=== PATIENT | female | born 1945 | race Caucasian/White ===

== ENCOUNTER 2025-02-02 16:37 | Inpatient (IN) | payer MEDICARE, OTHER ==
[~2025-02-02] VITALS: Ht 165.1 cm; Wt 93.5 kg
[2025-02-02] MEDS ORDERED: CYAN500T56 PO (17:55)
[2025-02-02] MEDS ORDERED: VITA-328 PO (17:55)
[2025-02-02] MEDS ORDERED: GABA-529 PO (17:55)
[2025-02-02] MEDS ORDERED: VIT1CAPS47 PO (17:55)
[2025-02-02] MEDS ORDERED: DONE-51 PO (17:55)
[2025-02-02] MEDS ORDERED: MULT-1192 PO (17:55)
[2025-02-02] MEDS ORDERED: AMLO10TA55 PO (17:55)
[2025-02-02] MEDS ORDERED: ATOR10TA69 PO (17:55)
[2025-02-02] MEDS ORDERED: FAMO40TA7 PO (17:55)
[2025-02-02] MEDS ORDERED: ESCI5TAB16 PO (17:55)
[2025-02-02] MEDS ORDERED: TRAM50TA5 PO (17:55)
[2025-02-02 18:08] LABS: BASOPHILS % (AUTO) 0.5 % (0.0-2.0); EOSINOPHILS % (AUTO) 1.7 % (1.0-6.0); HEMATOCRIT 41.3 % (36-46); HEMOGLOBIN 14.1 g/dL (12.0-16.0); LYMPHOCYTES # (AUTO) 1.8 K/uL (1.0-4.8); LYMPHOCYTES % (AUTO) 24.5 % (22.0-44.0); MEAN CORPUSCULAR VOLUME 88 fL (80-100); MONOCYTES # (AUTO) 0.5 K/uL (0.1-1.0); MONOCYTES % (AUTO) 6.7 % (2.0-9.0); NEUTROPHILS % (AUTO) 66.6 % (40.0-70.0); PLATELET COUNT (AUTO) 244 K/uL (150-450); RED BLOOD CELL COUNT(AUTO) 4.69 MIL/uL (4.00-5.20); RED CELL DISTRIBUTION WIDTH 14.5 % (11.5-14.5); WHITE BLOOD COUNT (AUTO) 7.5 K/uL (4.5-11.0)
[2025-02-02 18:11] LABS: APPEARANCE,URINE HAZY (CLEAR); BILIRUBIN,URINE NEGATIVE (NEGATIVE); COLOR,URINE YELLOW (YELLOW); GLUCOSE, URINE (UA) NEGATIVE (NEGATIVE); KETONES,URINE NEGATIVE (NEGATIVE); LEUKOCYTE ESTERASE ,URINE LARGE (NEGATIVE); NITRATE,URINE NEGATIVE (NEGATIVE); OCCULT BLOOD,URINE NEGATIVE (NEGATIVE); PROTEIN,URINE TRACE mg/dL (NEGATIVE); SPECIFIC GRAVITIY, URINE 1.018 (1.003-1.030); UROBILINOGEN,URINE <=1.0 mg/dL (<=1.0)
[2025-02-02 18:15] LABS: ANION GAP 6 mmol/L (8-16); CALCIUM, TOTAL 9.7 mg/dL (8.8-10.5); CARBON DIOXIDE 28 mmol/L (22-29); CHLORIDE 104 mmol/L (98-107); CREATININE 0.93 mg/dL (0.60-1.30); GLOMERULAR FILTR. RATE CALC 58 mL/min (>60); GLUCOSE,RANDOM 93 mg/dL (70-110); POTASSIUM 3.8 mmol/L (3.5-5.1); SODIUM SERUM 138 mmol/L (136-145); UREA NITROGEN, BLOOD 23 mg/dL (7-18)
[2025-02-02 18:16] LABS: LIPASE 32 U/L (16-77)
[2025-02-02 18:21] LABS: B-TYPE NATRIURETIC PEPTIDE 59 pg/mL (0-100)
[2025-02-02 18:23] LABS: RBC,URINE 0-2 /HPF (0-2)
[2025-02-02 18:24] LABS: BACTERIA,URINE Moderate /HPF (None Seen); SQUAMOUS EPITHELIAL CELL,UR Few /LPF (None Seen); WBC,URINE >100 /HPF (0-5)
[2025-02-02 18:25] LABS: LACTIC ACID 0.9 mmol/L (0.4-2.0)
[2025-02-02 18:26] LABS: TROPONIN I-HIGH SENSITIVITY 13 ng/L (<51)
[2025-02-02] MEDS ORDERED: ACETAMINOPHEN 325 MG TABLET PO PRN (19:00)
[2025-02-02] MEDS ORDERED: ONDANSETRON HCL 4 MG/2 ML VIAL IVP PRN (19:00)
[2025-02-02] MEDS: CefTRIAXone 1 GM/DEXTROSE 50 ML IV ONE (19:40)
[2025-02-02] MEDS: DOCUSATE SODIUM 100 MG CAPSULE PO SCH (21:25)
[2025-02-02] MEDS: HEPARIN SODIUM,PORCINE 5,000 UNITS/ML VIAL SQ SCH (23:42)
[2025-02-02] MEDS: RINGERS SOLUTION,LACTATED 1,000 ML IV ONE (23:43)
[2025-02-03] MEDS: LOSARTAN POTASSIUM 50 MG TABLET PO ONE (04:20)
[2025-02-03] MEDS: AmLODIPine BESYLATE 10 MG TABLET PO SCH (04:20)
[2025-02-03 05:34] LABS: BASOPHILS % (AUTO) 0.7 % (0.0-2.0); EOSINOPHILS % (AUTO) 2.4 % (1.0-6.0); HEMATOCRIT 42.5 % (36-46); HEMOGLOBIN 14.5 g/dL (12.0-16.0); LYMPHOCYTES # (AUTO) 1.7 K/uL (1.0-4.8); MEAN CORPUSCULAR HGB CONC 34.1 G/dL (31.0-37.0); MEAN CORPUSCULAR VOLUME 88 fL (80-100); MONOCYTES # (AUTO) 0.4 K/uL (0.1-1.0); NEUTROPHILS % (AUTO) 62.9 % (40.0-70.0); PLATELET COUNT (AUTO) 230 K/uL (150-450); RED BLOOD CELL COUNT(AUTO) 4.82 MIL/uL (4.00-5.20); RED CELL DISTRIBUTION WIDTH 14.1 % (11.5-14.5); WHITE BLOOD COUNT (AUTO) 6.4 K/uL (4.5-11.0)
[2025-02-03 05:42] LABS: ANION GAP 8 mmol/L (8-16); CALCIUM, TOTAL 9.4 mg/dL (8.8-10.5); CARBON DIOXIDE 28 mmol/L (22-29); CHLORIDE 107 mmol/L (98-107); GLOMERULAR FILTR. RATE CALC > 60 mL/min (>60); GLUCOSE,RANDOM 89 mg/dL (70-110); SODIUM SERUM 143 mmol/L (136-145); UREA NITROGEN, BLOOD 16 mg/dL (7-18)
[2025-02-03] MEDS ORDERED: AmLODIPine BESYLATE 10 MG TABLET PO SCH (09:00)
[2025-02-03 09:28] VITALS: BP 137/57; PULSE 63; RESP 18; TEMP 98.1; O2SAT 97
[2025-02-03] MEDS: TraMADol HCL 50 MG TABLET PO SCH (10:13)
[2025-02-03] MEDS: ESCITALOPRAM OXALATE 10 MG TABLET PO SCH (10:14)
[2025-02-03] MEDS: CYANOCOBALAMIN 500 MCG TABLET PO SCH (10:14)
[2025-02-03] MEDS: FAMOTIDINE 20 MG TABLET PO SCH (10:14)
[2025-02-03] MEDS: MULTIVITAMINS, THERAPEUTIC TABLET PO SCH (10:14)
[2025-02-03] MEDS: ATORVASTATIN CALCIUM 10 MG TABLET PO SCH (10:15)
[2025-02-03] MEDS: GABAPENTIN 100 MG CAPSULE PO SCH (12:53)
[2025-02-03] MEDS: VITAMIN B COMPLEX/FOLIC ACID 1 TABLET PO SCH (12:53)
[2025-02-03 14:45] VITALS: BP 146/52; PULSE 60; RESP 18; TEMP 97.9; O2SAT 100
[2025-02-03 19:55] VITALS: BP 144/60; PULSE 56; RESP 18; TEMP 97.9; O2SAT 96
[2025-02-03] MEDS ORDERED: SODIUM CHLORIDE 0.9% 500 ML IV ONE (20:09)
[2025-02-03] MEDS: DONEPEZIL HCL 10 MG TABLET PO SCH (20:14)
[2025-02-03] MEDS: CefTRIAXone 1 GM/DEXTROSE 50 ML IV SCH (21:05)
[2025-02-04 06:01] VITALS: BP 146/85; PULSE 64; RESP 18; TEMP 97.7; O2SAT 98
[2025-02-04 08:27] VITALS: BP 143/78; PULSE 63; RESP 19; TEMP 97.7; O2SAT 99
[2025-02-04 15:59] VITALS: BP 113/74; PULSE 72; RESP 19; TEMP 97.7; O2SAT 98
[2025-02-04 19:50] VITALS: BP 120/58; PULSE 70; RESP 18; TEMP 98.1; O2SAT 94
[2025-02-04] MEDS: *CLINICAL-LEVOFLOXACIN ORAL DOSING CLINICAL ONE (22:55)
[2025-02-05 05:40] VITALS: BP 129/51; PULSE 53; RESP 18; TEMP 98.2; O2SAT 97
[2025-02-05 08:25] VITALS: BP 150/55; PULSE 57; RESP 18; TEMP 98.1; O2SAT 97
[2025-02-05] MEDS: levoFLOXacin 500 MG TABLET PO SCH (08:34)
[2025-02-05] MEDS ORDERED: FAMO20 PO (10:40)
[2025-02-05] MEDS ORDERED: LEVO-72 PO (10:43)
[2025-02-05] MEDS ORDERED: AMOX-426 PO (14:57)
[2025-02-05 16:33] VITALS: BP 138/72; PULSE 59; RESP 18; TEMP 98.2; O2SAT 97
[2025-02-05] MEDS: BISACODYL 10 MG RECTAL RECTAL SUPPOSITORY PR ONE (19:08)
== END 2025-02-05 21:22 | DRG 689 ==
LOC: EMS 16:37 → EDH 19:11 → 6S 02-03 10:01
PROVIDERS: ADMIT Internal Medicine; ATTEND Internal Medicine
DX: N39.0 Urinary tract infection, site not specified (principal); G93.41 Metabolic encephalopathy; F03.93 Unspecified dementia, unspecified severity, with mood disturbance; R45.851 Suicidal ideations; F33.1 Major depressive disorder, recurrent, moderate; E78.00 Pure hypercholesterolemia, unspecified; B95.1 Streptococcus, group B, as the cause of diseases classified elsewhere; I11.0 Hypertensive heart disease with heart failure; I50.9 Heart failure, unspecified; K21.9 Gastro-esophageal reflux disease without esophagitis; Z79.899 Other long term (current) drug therapy; Z74.01 Bed confinement status
CPT/HCPCS: 71045; 80048; 81001; 82140; 83605; 83690; 83735; 83880; 84145; 84484; 85025; 87077; 87081; 87086; 87147; 87186; 93005; 96361; 96365; 99285; G0378; J0696; J1644; J7040; J7120; 36415-L1; 36415-TC